=== PATIENT | female | born 1990 | race American Indian/Alaskan Native ===

== ENCOUNTER 2021-11-07 14:07 | Emergency (ER) | payer SELFPAY ==
[2021-11-07 15:09] VITALS: BP 145/100
== END 2021-11-08 01:32 | disposition left against medical advice (07) ==
LOC: ED 14:07
DX: R21 Rash and other nonspecific skin eruption (principal); Z53.21 Procedure and treatment not carried out due to patient leaving prior to being seen by health care provider